=== PATIENT | male | born 1955 | race Caucasian/White ===

== ENCOUNTER → 2023-06-20 11:24 | Outpatient (BNVA) | payer OTHER, SELFPAY | PROVIDERS: PCP Internal Medicine; Visit Provider Physician Assistant | DX: M25.511 Pain in right shoulder (principal) | CPT/HCPCS: 99204 ==

== ENCOUNTER → 2023-06-27 12:56 | Outpatient (BNVA) | payer OTHER, SELFPAY | PROVIDERS: PCP Internal Medicine; Visit Provider Physician Assistant Medical | DX: M25.511 Pain in right shoulder (principal) | CPT/HCPCS: 99213 ==

== ENCOUNTER 2023-07-07 09:18 | Outpatient (REF) | payer OTHER, SELFPAY ==
--- NOTE | ~2023-07-07 | MR_ITS ---
EXAMINATION: MR SHOULDER WITHOUT CONTRAST, RIGHT CLINICAL INFORMATION: PAIN, WEAKNESS, TWIST/LIFTING INJURY +EMPTY CAN TEST COMPARISON: Radiograph dated 06/20/2023 TECHNIQUE: MRI of the shoulder without contrast was performed on a high-field scanner. FINDINGS: ROTATOR CUFF: There is moderate supraspinatus tendinosis with a small 3 x 6 mm focus of concealed interstitial delamination at the greater tuberosity insertion with underlying cortical irregularity and subcortical edema. There is more mild infraspinatus tendinosis. No muscle atrophy or fatty infiltration. BICEPS: The biceps tendon is disrupted at the origin on the the supraglenoid tubercle with distal retraction. CORACOACROMIAL ARCH: The undersurface of the acromion is flat with no subacromial spur. Mild to moderate acromioclavicular osteoarthritis. Small volume of fluid in subacromial subdeltoid bursa LABRUM/CAPSULE: The superior and posterior labrum are diminutive with superimposed fraying and irregularity, likely related to a combination of factors including the biceps tendon avulsion, superimposed degeneration, and developmental variation. No residual tears are identified. Joint capsule is intact GLENOHUMERAL JOINT/MARROW: Small glenoid osteophytes. No fracture or malalignment. Mild chondral thinning is present at the glenoid posterosuperiorly. Trace joint effusion. Cortical irregularity and subcortical edema are present at the greater tuberosity deep to the rotator cuff tendinopathy. MR/MR shoulder RT wo con IMPRESSION: 1. Complete tear of the biceps tendon at the origin with distal retraction. 2. Moderate supraspinatus tendinosis with a small 3 x 6 mm focus of concealed interstitial delamination at the greater tuberosity insertion. 3. 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 4. Mild subacromial subdeltoid bursitis.
== END 2023-07-07 09:19 | disposition home or self-care (01) ==
LOC: HO.MRI 09:18
PROVIDERS: PCP Internal Medicine; Visit Provider Internal Medicine
DX: M25.511 Pain in right shoulder (principal)
CPT/HCPCS: 73221

== ENCOUNTER → 2023-07-18 11:13 | Outpatient (BNVA) | payer OTHER, SELFPAY | PROVIDERS: PCP Internal Medicine; Visit Provider Physician Assistant Medical | DX: S46.211D Strain of muscle, fascia and tendon of other parts of biceps, right arm, subsequent encounter (principal); M75.101 Unspecified rotator cuff tear or rupture of right shoulder, not specified as traumatic; M71.58 Other bursitis, not elsewhere classified, other site; X58.XXXD Exposure to other specified factors, subsequent encounter | CPT/HCPCS: 99213 ==